=== PATIENT | male | born 1960 | race Caucasian/White ===

== ENCOUNTER 2016-05-09 00:18 | Emergency (ER) | payer BC ==
[~2016-05-09] VITALS: Ht 167.6 cm; Wt 68.4 kg
[~2016-05-09 00:18] MED LIST: ADVAIR HFA120 INHALA IH; CALCIUM 600 +1 EAC4 PO; CEFTIN500 MG PO; CYANOCOBAL1000 MCG/2 IM; DAILY VITAMIN1 EAC4 PO; DECADRON4 MG PO; DIFLUCAN100 MG PO; HYDROXYZINE HCL25 M1 PO; LEVOFLOXACIN750 MG PO; MOTRIN800 MG PO; NOHOMEMEDS; PREDNISONE10 MG PO; PROCHLORPERAZIN10 MG PO; REVLIMID10 MG PO; Robitussin DM PO; SPIRIVA RESPIMAT4 GM IH; SULFAMETHOXAZO1 EACH PO; TAMIFLU75 MG PO; TORADOL10 MG PO; VENTOLIN HFA18 GM IH; ZITHROMAX500 MG PO
[2016-05-09 01:05] LABS: HEMATOCRIT 36.8 % (38.0-50.0); MCH 31.7 PG (29.0-34.0); MCHC 35.3 G/DL (30.0-36.0); MCV 89.8 FL (86-99); PLATELET COUNT 124 K/uL (156-360); RBC DIS.WIDTH-CV 12.1 % (11.8-14.6); RBC DIS.WIDTH-SD 38.8 % (39-53)
[2016-05-09 01:09] LABS: INFLUENZA A VIRAL ANTIGEN POSITIVE; INFLUENZA B VIRAL ANTIGEN NEGATIVE
[2016-05-09 01:11] LABS: CHLORIDE 103 mEq/L (99-109); POTASSIUM 3.8 mEq/L (3.7-5.4); SODIUM 136 mEq/L (136-147)
[2016-05-09 01:13] LABS: GLUCOSE 93 mg/dL (70-99)
[2016-05-09 01:15] LABS: ANION GAP 10 MEQ/L (2-14)
[2016-05-09 01:17] LABS: GFR ESTIMATE (CALCULATED) > 59 mL/min/
[2016-05-09 01:18] LABS: UREA NITROGEN (BUN) 7 mg/dL (9-23)
[2016-05-09 01:31] LABS: TOTAL BILIRUBIN 0.7 mg/dL (0.0-1.0)
[2016-05-09 01:32] LABS: ALKALINE PHOSPHATASE 68 IU/L (3-129)
[2016-05-09 01:35] LABS: DIRECT BILIRUBIN 0.3 mg/dL (0.0-0.3)
[2016-05-09 01:36] LABS: LIPASE 11 U/L (1.0-51.0)
[2016-05-09] MEDS ORDERED: TAMIFLU75 MG PO (01:54)
[2016-05-09] MEDS ORDERED: ZOFRAN4 MG PO (02:22)
[2016-05-09] MEDS ORDERED: LEVAQUIN500 MG PO (02:43)
[2016-05-09 02:44] VITALS: BP 114/64
== END 2016-05-09 02:56 | disposition home or self-care (01) ==
LOC: EME 00:18
DX: J11.1 Influenza due to unidentified influenza virus with other respiratory manifestations (principal); J18.9 Pneumonia, unspecified organism; Z86.011 Personal history of benign neoplasm of the brain; Z87.891 Personal history of nicotine dependence
CPT/HCPCS: 71020; 80048; 80076; 83690; 85027; 87502; 99281; 99284; J2405; J7030

== ENCOUNTER 2016-06-04 12:01 | Emergency (ER) | payer BC ==
[~2016-06-04] VITALS: Ht 167.6 cm; Wt 67.2 kg
[~2016-06-04 12:01] MED LIST changes: +LEVAQUIN500 MG PO; +ZOFRAN4 MG PO
[2016-06-04 14:47] LABS: EOSINOPHIL (%) 1.9 % (0-5); EOSINOPHIL COUNT 0.1 K/uL (0-0.3); HEMATOCRIT 40.3 % (38.0-50.0); IMMATURE GRANULOCYTE (%) 0.5 % (0.0-0.7); INSTRUMENT ABS NEUTROPHIL CT 2.8 K/uL; LYMPHOCYTE COUNT 0.8 K/uL (1.0-2.8); MCH 30.6 PG (29.0-34.0); MCHC 33.3 G/DL (30.0-36.0); MEAN PLAT.VOLUME 9.5 uM^3 (9.0-12.4); MONOCYTE (%) 11.9 % (3-12); MONOCYTE COUNT 0.5 K/uL (0-0.8); NEUTROPHIL COUNT 2.8 K/uL (1.8-6.4); PLATELET COUNT 125 K/uL (156-360); RBC DIS.WIDTH-CV 12.2 % (11.8-14.6); RBC DIS.WIDTH-SD 41.5 % (39-53); RED BLOOD COUNT 4.38 M/uL (4.00-5.50)
[2016-06-04 14:48] LABS: WHITE BLOOD COUNT 4.1 K/uL (4.1-10.2)
[2016-06-04 14:55] LABS: CHLORIDE 101 mEq/L (99-109); POTASSIUM 4.1 mEq/L (3.7-5.4); SODIUM 133 mEq/L (136-147)
[2016-06-04 14:56] LABS: GLUCOSE 131 mg/dL (70-99)
[2016-06-04 14:58] LABS: ANION GAP 10 MEQ/L (2-14)
[2016-06-04 15:00] LABS: GFR ESTIMATE (CALCULATED) > 59 mL/min/
[2016-06-04 15:01] LABS: UREA NITROGEN (BUN) 14 mg/dL (9-23)
[2016-06-04 16:09] LABS: INFLUENZA A VIRAL ANTIGEN NEGATIVE; INFLUENZA B VIRAL ANTIGEN POSITIVE
[2016-06-04 16:49] VITALS: BP 104/64
== END 2016-06-04 17:07 | disposition home or self-care (01) ==
LOC: EME 12:01
PROVIDERS: Physician Assistant
DX: J10.1 Influenza due to other identified influenza virus with other respiratory manifestations (principal); Z85.841 Personal history of malignant neoplasm of brain; Z87.891 Personal history of nicotine dependence
CPT/HCPCS: 71020; 80048; 85025; 87502; 87651 90; 99281; 99285; J7030